=== PATIENT | female | born 1960 | race Caucasian/White ===

== ENCOUNTER 2018-05-31 00:20 | Outpatient (CLI) | payer MEDICAID, SELFPAY ==
--- NOTE | 2018-05-31 12:35 | DI.MAMMO_ITS ---
SYMPTOM/DIAGNOSIS: SCREENING, Z12.31 MAMMOGRAMS: Mammograms were interpreted according to the usual protocol including computer analysis with CAD system, tomosynthesis and C view imaging. The breasts are heterogeneously dense. No dominant mass or clumped microcalcification is identified in either breast. The current examination is compared with previous examinations including 05/2017 and there has been no gross interval change in appearance in comparison with the previous studies. CONCLUSION: No specific evidence of malignancy at this time. Routine screening examinations are suggested at yearly intervals in this age group according to the ACS/ACR guidelines. Category 1. Breast density, Category C. MQSA ASSESSMENT OF FINDINGS: Negative. Category 1. Patient will receive a letter notifying them of these results. Bi-RADS category C. The breasts are heterogeneously dense, which may obscure small masses.
== END 2018-05-31 00:40 ==
PROVIDERS: PCP Family Medicine; Visit Provider Nurse Practitioner Family
DX: Z12.31 Encounter for screening mammogram for malignant neoplasm of breast (principal)
CPT/HCPCS: 77063; 77067

== ENCOUNTER 2019-06-12 00:43 | Outpatient (CLI) | payer MEDICAID, SELFPAY ==
--- NOTE | 2019-06-12 08:55 | DI.MAMMO_ITS ---
EXAM: MG MAMMO SCREENING CLINICAL HISTORY: screening,Z12.39 TECHNIQUE: Bilateral full field digital CC and MLO mammographic images were obtained with 3D tomosyn thesis and utilizing computer aided detection (CAD). COMPARISON: Available for comparison. FINDINGS: Masses/Architectural Distortion: None seen. Microcalcifications: No suspicious pleomorphic-type are seen. Skin Thickening/Nipple Retraction: None. IMPRESSION: 1. No significant interval change with no specific features of malignancy noted. 2. Unless there is more urgent need, screening mammography is recommended, as per [place] guidelines. ACR BI-RAD Category- 1 Negative Breast Density - Category C - Heterogeneously dense The mammogram demonstrates the patient's breast tissue is dense. Dense breast tissue is very common a nd is not abnormal but dense breast tissue can make it harder to find cancer on a mammogram. Also, de nse breast tissue may increase their breast cancer risk. This information about the result of the [facility] mogram report was provided to the patient to raise their awareness. Use this report when you speak wi th the patient about their risks for breast cancer, which includes their family history. At that time , you may recommend for more screening tests (Ultrasound or MRI) as they might be useful based on the ir risk. A negative radiographic report should not delay biopsy if a dominant or clinically suspicious mass is present. Up to ten percent of cancers are not identified on mammography. A negative report may reinforce clinical impression. Adenosis and dense breasts may obscure an underlying neoplasm. False positive reports average 6 to 10%. Patient will receive a letter notifying them of these results.
== END 2019-06-12 01:03 ==
PROVIDERS: PCP Family Medicine; Visit Provider Nurse Practitioner Family
DX: Z12.31 Encounter for screening mammogram for malignant neoplasm of breast (principal)
CPT/HCPCS: 77063; 77067

== ENCOUNTER 2020-06-23 01:13 | Outpatient (CLI) | payer MEDICAID, SELFPAY ==
--- NOTE | 2020-06-23 08:00 | DI.MAMMO_ITS ---
EXAM: MG MAMMO SCREENING CLINICAL HISTORY: screening. TECHNIQUE: Bilateral full field digital CC and MLO mammographic images were obtained with 3D tomosyn thesis and utilizing computer aided detection (CAD). COMPARISON: Prior mammograms dating back to 2011, the most recent being June 2009. FINDINGS: There are no spiculated masses nor malignant appearing microcalcification groups. There is no signif icant architectural distortion nor skin thickening-retraction. IMPRESSION: No radiographic evidence of malignancy. Fibroglandular tissue is moderately dense. BI-RADS Category 1 - Negative Breast Density - Category C - Heterogeneously dense Breast density Category C or D implies that the patient has dense breast tissue. Dense breast tissue can make it harder to find cancer on a mammogram. Dense breast tissue is also associated with an incr eased risk of breast cancer. This information about the result of the mammogram report was provided to the patient to raise their awareness. Use this report when you speak with the patient about their risks for breast cancer, which includes their family history. At that time, you may recommend additional screening tests (Ultrasoun d or MRI) as these tests may add significant information. A negative radiographic report should not delay biopsy if a dominant or clinically suspicious mass is present. Up to ten percent of cancers are not identified on mammography. A negative report may reinforce clinical impression. Adenosis and dense breasts may obscure an underlying neoplasm. False positive reports average 6 to 10%. Patient will receive a letter notifying them of these results.
== END 2020-06-23 01:33 ==
PROVIDERS: PCP Neuromusculoskeletal Medicine & OMM; Visit Provider Nurse Practitioner Family
DX: Z12.31 Encounter for screening mammogram for malignant neoplasm of breast (principal)
CPT/HCPCS: 77063; 77067

== ENCOUNTER 2021-08-06 02:26 | Outpatient (CLI) | payer MEDICAID, SELFPAY ==
--- NOTE | 2021-08-06 07:41 | DI.MAMMO_ITS ---
Exam(s) MAMMO SCREENING EXAM: MAMMO SCREENING CLINICAL HISTORY: screening TECHNIQUE: Bilateral full field digital CC and MLO mammographic images were obtained with 3D tomosyn thesis and utilizing computer aided detection (CAD). COMPARISON: Available for comparison. FINDINGS: Masses/Architectural Distortion: None seen. Microcalcifications: No suspicious pleomorphic-type are seen. Skin Thickening/Nipple Retraction: None. IMPRESSION: 1. No significant interval change with no specific features of malignancy noted. 2. Unless there is more urgent need, screening mammography is recommended, as per [place] [employer] guidelines. BI-RADS Category 1 - Negative Breast Density - Category B - Scattered areas of fibroglandular density Breast density category C or D implies that the patient has dense breast tissue. Dense breast tissue is very common and is not abnormal but dense breast tissue can make it harder to find cancer on a ma mmogram. Also, dense breast tissue may increase their breast cancer risk. This information about the result of the mammogram report was provided to the patient to raise their awareness. Use this report when you speak with the patient about their risks for breast cancer, which includes their family hist ory. At that time, you may recommend for more screening tests (Ultrasound or MRI) as they might be us eful based on their risk. A negative radiographic report should not delay biopsy if a dominant or clinically suspicious mass is present. Up to ten percent of cancers are not identified on mammography. A negative report may reinforce clinical impression. Adenosis and dense breasts may obscure an underlying neoplasm. False positive reports average 6 to 10%. Patient will receive a letter notifying them of these results.
== END 2021-08-06 02:46 ==
PROVIDERS: PCP Neuromusculoskeletal Medicine & OMM; Visit Provider Nurse Practitioner Family
DX: Z12.31 Encounter for screening mammogram for malignant neoplasm of breast (principal)
CPT/HCPCS: 77063; 77067

== ENCOUNTER 2022-07-20 01:42 | Outpatient (CLI) | payer MEDICAID, SELFPAY ==
--- NOTE | 2022-07-20 | DI.US_ITS ---
Exam(s) US CAROTID EXAM: US CAROTID CLINICAL HISTORY: STRONG FAMILY H/O CAROTID ARTERY STENOSIS,FAMILY H/O STROKE,Z82.3. TECHNIQUE: Ultrasound carotids performed using grayscale, color-flow, and spectral Doppler imaging. COMPARISON: No exams were available for comparison FINDINGS: RIGHT CAROTID ARTERY: Plaque: Mild plaque seen at the carotid bulb, proximal internal carotid artery and proximal external carotid artery. Velocity elevation: None. LEFT CAROTID ARTERY: Plaque: Mild plaque seen at the carotid bulb, proximal internal carotid artery and proximal external carotid artery. Velocity elevation: None. VERTEBRAL ARTERIES: Antegrade flow. Measurements: R Bulb: 85.4cm/s PS / 31cm/s ED R CCA: 62.1cm/s PS / 25.8cm/s ED R ECA: 125.5cm/s PS / 23.1cm/s ED R ICA Prox: 77.6cm/s PS / 31cm/s ED R ICA Mid: 76.3cm/s PS / 27.1cm/s ED R ICA Distal: 107.4cm/s PS /42.6cm/s ED R Vert: 68.2cm/s PS / 25cm/s ED R SVR: 1.7 R DVR: 1.7 L Bulb: 75.4cm/s PS / 23.1cm/s ED L CCA: 68.8cm/s PS / 27.4cm/s ED L ECA: 90.6cm/s PS / 16.6cm/s ED L ICA Prox: 86.2cm/s PS / 34cm/s ED L ICA Mid: 97.1cm/s PS / 47cm/s ED L ICA Distal: 121.1cm/s PS / 53.6cm/s ED L Vert: 61.8cm/s PS / 20.8cm/s ED L SVR: 1.8 L DVR: 2 IMPRESSION: 1. No evidence for hemodynamically significant carotid stenosis. 2. Mild atherosclerosis. Criteria for Carotid Stenosis: Normal: ICA PSV <125 cm/s no plaque or intimal thickening is visible. <50% stenosis: ICA PSV <125 cm/s and plaque or intimal thickening is visible. 50-69% stenosis: ICA PSV is 125-250 cm/s and plaque is visible. >70% stenosis to near occlusion: ICA PSV >250 cm/s with visible plaque and luminal narrowing. DATA REPOSITORY:
== END 2022-07-20 02:02 ==
LOC: DI 01:43
PROVIDERS: PCP Neuromusculoskeletal Medicine & OMM; Visit Provider Neuromusculoskeletal Medicine & OMM
DX: I25.10 Atherosclerotic heart disease of native coronary artery without angina pectoris (principal)
CPT/HCPCS: 93880

== ENCOUNTER 2022-08-09 02:15 | Outpatient (CLI) | payer MEDICAID, SELFPAY ==
--- NOTE | 2022-08-09 07:45 | DI.MAMMO_ITS ---
Exam(s) MAMMO SCREENING EXAM: MAMMO SCREENING CLINICAL HISTORY: screening TECHNIQUE: Bilateral full field digital CC and MLO mammographic images were obtained with 3D tomosyn thesis and utilizing computer aided detection (CAD). COMPARISON: Available for comparison. FINDINGS: Masses/Architectural Distortion: None seen. Microcalcifications: No suspicious pleomorphic-type are seen. Skin Thickening/Nipple Retraction: None. IMPRESSION: 1. No significant interval change with no specific features of malignancy noted. 2. Unless there is more urgent need, screening mammography is recommended, as per [place] guidelines. BI-RADS Category 1 - Negative Breast Density - Category B - Scattered areas of fibroglandular density Breast density category C or D implies that the patient has dense breast tissue. Dense breast tissue is very common and is not abnormal but dense breast tissue can make it harder to find cancer on a ma mmogram. Also, dense breast tissue may increase their breast cancer risk. This information about the result of the mammogram report was provided to the patient to raise their awareness. Use this report when you speak with the patient about their risks for breast cancer, which includes their family hist ory. At that time, you may recommend for more screening tests (Ultrasound or MRI) as they might be us eful based on their risk. A negative radiographic report should not delay biopsy if a dominant or clinically suspicious mass is present. Up to ten percent of cancers are not identified on mammography. A negative report may reinforce clinical impression. Adenosis and dense breasts may obscure an underlying neoplasm. False positive reports average 6 to 10%. Patient will receive a letter notifying them of these results.
== END 2022-08-09 02:35 ==
LOC: DI 02:16
PROVIDERS: PCP Neuromusculoskeletal Medicine & OMM; Visit Provider Nurse Practitioner Women's Health
DX: Z12.31 Encounter for screening mammogram for malignant neoplasm of breast (principal)
CPT/HCPCS: 77063; 77067

== ENCOUNTER → 2023-08-26 01:09 | Outpatient (CLI) | payer MEDICAID, SELFPAY ==
--- NOTE | 2023-08-26 | DI.MAMMO_ITS ---
Exam(s) MAMMO SCREENING EXAM: MAMMO SCREENING CLINICAL HISTORY: SCREENING MAMMO FOR BREAST CANCER Z12.39 TECHNIQUE: Bilateral full field digital CC and MLO mammographic images were obtained with 3D tomosyn thesis and utilizing computer aided detection (CAD). COMPARISON: Available for comparison. FINDINGS: Masses/Architectural Distortion: None seen. Microcalcifications: No suspicious pleomorphic-type are seen. Skin Thickening/Nipple Retraction: None. IMPRESSION: 1. No significant interval change with no specific features of malignancy noted. 2. Unless there is more urgent need, screening mammography is recommended, as per [employer] guidelines. BI-RADS Category 1 - Negative Breast Density - Category B - Scattered areas of fibroglandular density Breast density category C or D implies that the patient has dense breast tissue. Dense breast tissue is very common and is not abnormal but dense breast tissue can make it harder to find cancer on a ma mmogram. Also, dense breast tissue may increase their breast cancer risk. This information about the result of the mammogram report was provided to the patient to raise their awareness. Use this report when you speak with the patient about their risks for breast cancer, which includes their family hist ory. At that time, you may recommend for more screening tests (Ultrasound or MRI) as they might be us eful based on their risk. A negative radiographic report should not delay biopsy if a dominant or clinically suspicious mass is present. Up to ten percent of cancers are not identified on mammography. A negative report may reinforce clinical impression. Adenosis and dense breasts may obscure an underlying neoplasm. False positive reports average 6 to 10%. Patient will receive a letter notifying them of these results.
--- NOTE | 2023-08-26 | DI.MRI_ITS ---
Exam(s) MR BRAIN WO EXAM: MR BRAIN WO CLINICAL HISTORY: POLYNEUROPATHY G62.9 DISORDER OF BONE M89.8X9 HYPERLIPIDEMIA E78.2 WEAKNESS TECHNIQUE: Multiplanar multisequence MRI of the brain was performed. COMPARISON: No exams were available for comparison FINDINGS: VENTRICLES AND EXTRA AXIAL SPACES: Normal in size and morphology for the patient's age. MIDLINE SHIFT: None. CEREBRAL PARENCHYMA: No focus of restricted diffusion to suggest acute infarct. No space-occupying le barrett identified. There are nonspecific several foci of hyperintense signal in the white matter on the FLAIR and T2 weighted images most suggestive of chronic microvascular ischemic disease. HEMORRHAGE: None. BRAINSTEM/CEREBELLUM: Normal. CALVARIUM: Normal. VISUALIZED PARANASAL SINUSES/MASTOIDS:There is a small mucous retention cyst in the right maxillary s inus. There is a small fluid level seen in the left maxillary sinus. The remaining visualized paran wendy sinuses and mastoid air cells are clear. [place]: Normal flow void. PITUITARY GLAND: Unremarkable. OTHER FINDINGS: None. IMPRESSION: 1. No evidence of an acute infarct. 2. Nonspecific hyperintense white matter hyperintensities on the FLAIR and T2 weighted images. Findi ngs likely reflect chronic microvascular ischemic disease. Differential considerations include demye linating processes, inflammatory processes including vasculitides, trauma or migraine among other mila ologies. Please correlate clinically. 3. Small fluid level in the left maxillary sinus which may reflect acute sinusitis. DATA REPOSITORY:
== END ==
PROVIDERS: PCP Neuromusculoskeletal Medicine & OMM; Visit Provider Nurse Practitioner Family
DX: Z12.31 Encounter for screening mammogram for malignant neoplasm of breast (principal); I67.82 Cerebral ischemia
CPT/HCPCS: 77063; 77067; 70551

== ENCOUNTER 2024-03-29 01:30 | Outpatient (CLI) | payer MEDICAID, SELFPAY ==
--- NOTE | 2024-03-29 07:30 | DI.US_ITS ---
APPROVED REPORT EXAM: Comprehensive 2D, Doppler, and color-flow Echocardiogram Patient Location: Out-Patient Housekeeping Worker: Jayda Moreno RDCS (AE) Indications: New onset cardiac murmur Other Information Study Quality: Adequate Conclusion Normal left ventricular chamber size. There is disproportionate upper septal thickening. LV systoli c function is normal. EF is 60% Wall motion is normal Normal right ventricular size and function Both atria are normal in size Mitral annular calcification. Mild to moderate mitral regurgitation Estimated right ventricular systolic pressure is 27 mmHg Wall motion Left Ventricle The left ventricle is normal size. The left ventricular systolic function is normal. The left ventric ular ejection fraction is within the normal range. Mild basal septal hypertrophy is present. Echo fin dings are not consistent with a left ventricular outflow tract obstruction. There is normal LV segmen kellee wall motion. There is no ventricular septal defect visualized. LVEF is 60%. Right Ventricle The right ventricle is normal size. The right ventricular systolic function is normal. Atria The left atrium size is normal. The right atrium size is normal. The interatrial septum is intact wit h no evidence for an atrial septal defect. Aortic Valve The aortic valve is normal in structure. Aortic valve is trileaflet. There is no aortic valvular sten osis. Mitral Valve Mitral annular calcification. No evidence of mitral valve stenosis. Mild to moderate mitral regurgi tation. Tricuspid Valve The tricuspid valve is normal in structure. There is no tricuspid valve stenosis. Trace tricuspid reg urgitation. The RVSP is 27.2 mmHg. Pulmonic Valve The pulmonary valve is normal in structure. There is no pulmonic valvular stenosis. Trace pulmonic re gurgitation. Great Vessels The aortic root is normal in size. The ascending aorta is normal in size. Aortic arch is normal in ca liber. IVC is normal in size and collapses >50% with inspiration. Pericardium There is no pericardial effusion. 2D Dimensions IVSD d PLAX 1.33 cm F: 0.6-1.0 Ao Root d 2.89 cm F: 2.7 - 3.3 LVPW d PLAX 1.00 cm F: 0.6 - 1.0 Ao Asc Diam d 3.08 cm F: 2.3 - 3.1 LVID d PLAX 4.44 cm F: 3.8 - 5.2 LVDs 3.10 cm F: 2.2 - 3.5 LV EF Teichholz 57.8 % FS 30.29 % LV EDV (Teich) 89.8 mL LV ESV (Teich) 37.9 mL M-Mode TAPSE 2.16 cm (M/F) >1.7 Auto EF LV EDV A4C 83.5 mL LV EDV A2C 84.1 mL LV EDV BP 84.3 mL LV ESV A4C 34.9 mL LV ESV A2C 34.6 mL LV ESV BP 34.9 mL LVEF(%) A4C 58.2 % LVEF(%) A2C 58.8 % LVEF(%) BP 58.6 % LV SV A4C 48.6 ml LV SV A2C 49.5 ml LV SV BP 49.4 ml LV CO A4C 3.1 L/min LV CO A2C 3.2 L/min LV CO BP 3.1 L/min HR A4C 64.17 BPM HR A2C 63.84 BPM LV EDV Index (BP) LA Volume LA Length A4C 4.6 cm LA Length A2C 4.3 cm LA Area A4C s 13.63 cm2 LA Area A2C s 15.39 cm2 LA Vol A4C A-L 34.40 mL LA Vol A2C A-L 46.46 mL LA Vol Biplane A-L 41.1 mL LA Vol/BSA A4C A-L LA Vol/BSA A2C A-L LA Vol/BSA BP A-L 24.3 mL/m2 LA Vol A4C MOD 31.6 mL LA Vol A2C MOD 42.9 mL LA Vol BP MOD 37.9 mL RA Volume RA Area A4C 11.8 cm2 RA ESV A4C (A-L) 27.1mL RA Vol/BSA A4C A-L RA Length A4C 4.4 cm RA ESV A4C (MOD) 26.2mL LV Diastology MV E' medial 0.071 (>0.07 m/s) MV E Vmax 1.07 (0.4-1.3 m/s) MV E/E' MED 14.93 (<14) MV A Vmax 1.05 (0.4-1.3 m/s) MV E' lateral 0.082 (>0.1 m/s) E/A Ratio 1.0 MV E/E' LAT 12.98 (<14) MV E' Average 0.077 m/s MV E/E'(average) 13.88 Aortic Valve AoV Vmax 1.56 m/s LVOT Vmax 1.28 m/s AoV Peak Grad 9.7 mmHg LVOT Peak Grad 6.6 mmHg AoV Area (Vmax) 2.32 cm2 LVOT VTI 0.284 m AoV VTI 0.383 m LVOT Mean Grad 4.2 mmHg AoV Mean Antony. 1.07 m/s LVOT SV 79.84 mL AoV Mean Grad 5.3 mmHg LVOT Diam s 1.85 cm AoV Area (VTI) 2.09 cm2 AV Regurg Peak Gr. 9.69 mmHg Velocity Ratio 0.82 Mitral Valve MV DT 189 (160-240 msec) Pulmonary Valve PV Vmax 1.19 (0.5-1.5 m/s) RVOT Vmax 0.69 m/s PV Peak Grad 5.7 mmHg RVOT Peak Gr. 1.9 mmHg PV Mean Antony 0.72 m/s RVOT VTI 0.163 m PV Mean Grad 2.4 mmHg RVOT Mean Gr. 1.0 mmHg Tricuspid Valve RA Pressure 3.00 mmHg TR Vmax 2.46 m/s TV S' 0.13 m/s TR Peak Grad 24.1 mmHg RVSP (TR) 27.2 mmHg
== END 2024-03-29 01:50 ==
LOC: DI 01:30
PROVIDERS: PCP Neuromusculoskeletal Medicine & OMM; Visit Provider Nurse Practitioner Family
DX: R01.1 Cardiac murmur, unspecified (principal)
CPT/HCPCS: 93306